=== PATIENT | male | born 1950 | race Caucasian/White ===

== ENCOUNTER → 2019-11-01 08:42 | Outpatient (CLI) | payer OTHER, SELFPAY ==
--- NOTE | ~2019-11-01 | US_ITS ---
EXAMINATION: US right upper quadrant DATE: 11/01/2019 09:08 INDICATION: Epigastric abdominal pain. TECHNIQUE: Multiple grayscale and Doppler ultrasound images of the abdomen were obtained. COMPARISON: None FINDINGS: The visualized portions of the head, body, and tail of the pancreas are normal. There are 2 .5 cm and 1.8 cm hyperechoic masses in the liver. The gallbladder is normal in size and contains ston es. Gallbladder wall thickening is noted. There was a positive sonographic Mariano sign. The common du ct is normal and measures 5 mm. IMPRESSION: 1. Acute cholecystitis. 2. Two hyperechoic liver masses. In the absence of known malignancy or chronic liver disease, these f indings are likely benign masses such as hemangiomas. Reviewed, dictated and finalized at location B. IMPRESSION: 1. Acute cholecystitis. 2. Two hyperechoic liver masses. In the absence of known malignancy or chronic liver disease, these findings are likely benign masses such as hemangiomas.
== END ==
DX: R10.13 Epigastric pain (principal); K81.0 Acute cholecystitis
CPT/HCPCS: 76705

== ENCOUNTER → 2020-08-11 08:03 | Outpatient (REF) | payer OTHER, SELFPAY | LOC: ANHLAB 08:03 | PROVIDERS: Visit Provider Nurse Practitioner | DX: L57.0 Actinic keratosis (principal); L57.8 Other skin changes due to chronic exposure to nonionizing radiation | CPT/HCPCS: 88305; 88331 ==

== ENCOUNTER → 2021-01-27 08:09 | Outpatient (CLI) | payer OTHER, SELFPAY ==
--- NOTE | ~2021-01-27 | XR_ITS ---
EXAMINATION: XR foot RT 2V DATE: 01/27/2021 08:42 INDICATION: Polyarthralgia. TECHNIQUE: 2 views of right foot were obtained. COMPARISON: None. FINDINGS: Bone alignment is normal. No fracture. There is mild osteoarthritis of first metatarsophala ngeal joint and some of the interphalangeal joints. There are erosions of first interphalangeal joint . There are small enthesophytes at the posterior and plantar aspects of calcaneal tuberosity. IMPRESSION: 1. Erosions of first interphalangeal joint, which may be seen with inflammatory arthropathy such as g out. 2. Mild polyarticular osteoarthritis. Reviewed, dictated and finalized at location A. BLASTER IMPRESSION: 1. Erosions of first interphalangeal joint, which may be seen with inflammatory arthropathy such as gout. 2. Mild polyarticular osteoarthritis.
--- NOTE | ~2021-01-27 | XR_ITS ---
EXAMINATION: XR foot LT 2V DATE: 01/27/2021 08:42 INDICATION: Polyarthralgia. TECHNIQUE: 2 views of left foot were obtained. COMPARISON: None. FINDINGS: Bone alignment is normal. No fracture. There is moderate osteoarthritis of talonavicular jeffrey int and mild osteoarthritis of first metatarsophalangeal joint and some of the other midfoot joints. IMPRESSION: 1. Polyarticular osteoarthritis. Reviewed, dictated and finalized at location A. MER BLOCKER
--- NOTE | ~2021-01-27 | XR_ITS ---
EXAMINATION: XR hand RT 2V DATE: 01/27/2021 08:42 INDICATION: Polyarthralgia. TECHNIQUE: 2 views of right hand were obtained. COMPARISON: None. FINDINGS: Bone alignment is normal. No fracture. There is mild arthritis of distal radioulnar joint a nd radiocarpal compartment, severe arthritis of scaphoid-capitate joint, lunate-capitate joint, and l unate-hamate joint, and moderate arthritis of triscaphe joint. This arthritis is characterized by non uniform joint space narrowing and subchondral cysts versus erosions. There is mild joint space narrow ing of second and third metacarpophalangeal joints. There is mild osteoarthritis of first carpometaca rpal joint and most of the interphalangeal joints. There is severe osteoarthritis of fifth distal int erphalangeal joint and moderate osteoarthritis of second-fourth distal interphalangeal joints. IMPRESSION: 1. Severe arthritis centered in the midcarpal compartment, which may be an inflammatory arthropathy s uch as rheumatoid arthritis. 2. Polyarticular osteoarthritis. Reviewed, dictated and finalized at location A. GE MAKER IMPRESSION: 1. Severe arthritis centered in the midcarpal compartment, which may be an infl ammatory arthropathy such as rheumatoid arthritis. 2. Polyarticular osteoarthritis.
--- NOTE | ~2021-01-27 | XR_ITS ---
EXAMINATION: XR chest 2V 01/27/2021 08:42 INDICATION: Polyarthralgia PROCEDURE: 2 view chest COMPARISON: No prior studies for comparison. FINDINGS: The lungs are clear. The cardiomediastinal silhouette is within normal limits. There are no pleural effusions. There is no pneumothorax suspected. IMPRESSION: 1: NO ACUTE CARDIOPULMONARY DISEASE. Reviewed, dictated and finalized at location A. TER MANAGER
--- NOTE | ~2021-01-27 | XR_ITS ---
EXAMINATION: XR hand LT 2V DATE: 01/27/2021 08:42 INDICATION: Polyarthropathy. TECHNIQUE: 2 views of left hand were obtained. COMPARISON: None. FINDINGS: There is hyperextension of the third-fifth proximal interphalangeal joints. No fracture. Th ere is mild osteoarthritis of radioscaphoid joint and first carpometacarpal joint. There is moderate joint space narrowing of first and fourth metacarpophalangeal joints and mild joint space narrowing o f second and third metacarpophalangeal joints. There is mild osteoarthritis of first interphalangeal joint. There is moderate joint space narrowing of second distal interphalangeal joint and severe join t space narrowing of third-fifth distal interphalangeal joints associated with small osteophytes. IMPRESSION: 1. Joint space narrowing of the metacarpophalangeal joints, which may be an inflammatory arthropathy such as rheumatoid arthritis. 2. Polyarticular osteoarthritis. Reviewed, dictated and finalized at location A. AL STUNNER IMPRESSION: 1. Joint space narrowing of the metacarpophalangeal joints, which may be an inf lammatory arthropathy such as rheumatoid arthritis. 2. Polyarticular osteoarthritis.
== END ==
PROVIDERS: PCP Internal Medicine; Visit Provider Physician Assistant
DX: M25.50 Pain in unspecified joint (principal); M15.9 Polyosteoarthritis, unspecified
CPT/HCPCS: 71046; 73120; 73620